=== PATIENT | male | born 1970 | race Caucasian/White ===

== ENCOUNTER 2017-05-23 08:40 | Emergency (ER) | payer MEDICAID ==
[~2017-05-23] VITALS: Ht 170.2 cm; Wt 75.0 kg
[2017-05-23 08:46] VITALS: BP 102/70
== END 2017-05-23 09:07 | disposition left against medical advice (07) ==
LOC: ER 08:50
DX: R07.89 Other chest pain (principal); F10.129 Alcohol abuse with intoxication, unspecified; I10 Essential (primary) hypertension; I25.2 Old myocardial infarction; F17.200 Nicotine dependence, unspecified, uncomplicated
CPT/HCPCS: 99283

== ENCOUNTER 2019-07-15 19:44 | Emergency (ER) | payer MEDICAID ==
[~2019-07-15] VITALS: Ht 170.2 cm; Wt 68.0 kg
[2019-07-15] MEDS ORDERED: SODIUM CHLORIDE 0.9% 1,000 ML IV ONE (20:14)
[2019-07-15] MEDS ORDERED: LEVETIRACETAM 1000MG/100ML 100 ML IV ONE (20:15)
[2019-07-15 20:51] LABS: CHLORIDE 111 mEq/L (98-107)
[2019-07-15 20:55] LABS: ETHANOL BLOOD 238 mg/dL
[2019-07-15 20:57] LABS: BASOPHILS % 1.5 % (0.0-2.0); EOSINOPHILS % 5.6 % (0.0-5.0); HEMATOCRIT. 39.7 % (42.0-52.0); HEMOGLOBIN. 13.4 g/dL (14.0-18.0); LYMPHOCYTES % 36.4 % (20.0-50.0); MEAN CORPUSCULAR HEMOGLOBIN 32.5 pg (28.0-32.0); MEAN CORPUSCULAR VOLUME 96.6 fL (80.0-94.0); MEAN PLATELET VOLUME 8.1 fl (7.4-10.4); MONOCYTES % 8.5 % (2.0-8.0); PLATELET 113 x1000/uL (130-400); RED BLOOD CELL COUNT 4.11 mill/uL (4.7-6.1)
[2019-07-15 21:11] LABS: CLARITY URINE CLEAR (CLEAR); COLOR URINE YELLOW (YELLOW); KETONES URINE NEGATIVE (NEGATIVE); LEUKOCYTE ESTERASE URINE NEGATIVE (NEGATIVE); NITRITE URINE NEGATIVE (NEGATIVE); OCCULT BLOOD URINE NEGATIVE (NEGATIVE); PH URINE 5.5 (4.5-8.0); PROTEIN URINE NEGATIVE (NEGATIVE); SPECIFIC GRAVITY URINE 1.005 (1.005-1.030); UROBILINOGEN URINE 0.2 E.U./dL (0.2-1.0)
[2019-07-15 21:21] LABS: *AMPHETAMINES SCREEN URINE NEGATIVE (NEGATIVE); *BARBITURATES SCREEN URINE NEGATIVE (NEGATIVE)
[2019-07-15 21:22] LABS: *BENZODIAZEPINES SCREEN URINE NEGATIVE (NEGATIVE); *COCAINE SCREEN URINE NEGATIVE (NEGATIVE); CANNABINOID URINE SCREEN NEGATIVE (NEGATIVE); METHADONE URINE SCREEN NEGATIVE (NEGATIVE); OPIATES URINE SCREEN NEGATIVE (NEGATIVE); PHENCYCLIDINE URINE SCREEN NEGATIVE (NEGATIVE)
[2019-07-15 22:40] VITALS: BP 159/96
== END 2019-07-15 22:44 | disposition home or self-care (01) ==
LOC: ER 19:44
DX: R56.9 Unspecified convulsions (principal); F10.229 Alcohol dependence with intoxication, unspecified; Y90.8 Blood alcohol level of 240 mg/100 ml or more; I10 Essential (primary) hypertension; Z86.73 Personal history of transient ischemic attack (TIA), and cerebral infarction without residual deficits; Z98.890 Other specified postprocedural states
CPT/HCPCS: 36415; 80053; 80305; 80320; 81003; 85025; 96365; 99283; J1953; J7030; Z7610; G0480

== ENCOUNTER 2019-08-23 06:11 | Inpatient (IN) | payer MEDICAID ==
[~2019-08-23] VITALS: Ht 167.6 cm; Wt 64.1 kg
[2019-08-23] MEDS ORDERED: MIDAZOLAM HCL 2 MG/2 ML VIAL ONE (06:18)
[2019-08-23] MEDS ORDERED: MIDAZOLAM HCL 2 MG/2 ML VIAL IM ONE (06:30)
[2019-08-23] MEDS ORDERED: LEVETIRACETAM 1000MG/100ML 100 ML IV ONE (06:30)
[2019-08-23] MEDS ORDERED: SODIUM CHLORIDE 0.9% 1,000 ML IV ONE (06:38)
[2019-08-23 06:51] LABS: CHLORIDE 103 mEq/L (98-107)
[2019-08-23 06:54] LABS: BASOPHILS % 0.8 % (0.0-2.0); EOSINOPHILS % 1.9 % (0.0-5.0); HEMATOCRIT. 45.9 % (42.0-52.0); HEMOGLOBIN. 14.7 g/dL (14.0-18.0); LYMPHOCYTES % 44.2 % (20.0-50.0); MEAN CORPUSCULAR HEMOGLOBIN 32.2 pg (28.0-32.0); MEAN CORPUSCULAR VOLUME 100.4 fL (80.0-94.0); MONOCYTES % 6.6 % (2.0-8.0); NEUTROPHILS % 46.5 % (40.0-76.0); PLATELET 193 x1000/uL (130-400); RED BLOOD CELL COUNT 4.57 mill/uL (4.7-6.1)
[2019-08-23 06:55] LABS: ETHANOL BLOOD 14 mg/dL
[2019-08-23 07:13] LABS: CLARITY URINE CLEAR (CLEAR); COLOR URINE YELLOW (YELLOW); KETONES URINE NEGATIVE (NEGATIVE); LEUKOCYTE ESTERASE URINE NEGATIVE (NEGATIVE); NITRITE URINE NEGATIVE (NEGATIVE); OCCULT BLOOD URINE 1+ (NEGATIVE); PH URINE 6.5 (4.5-8.0); PROTEIN URINE 2+ (NEGATIVE); SPECIFIC GRAVITY URINE 1.014 (1.005-1.030); UROBILINOGEN URINE 0.2 E.U./dL (0.2-1.0)
[2019-08-23 07:57] LABS: *AMPHETAMINES SCREEN URINE NEGATIVE (NEGATIVE); *BARBITURATES SCREEN URINE NEGATIVE (NEGATIVE); *BENZODIAZEPINES SCREEN URINE NEGATIVE (NEGATIVE); *COCAINE SCREEN URINE NEGATIVE (NEGATIVE); CANNABINOID URINE SCREEN NEGATIVE (NEGATIVE); OPIATES URINE SCREEN NEGATIVE (NEGATIVE); PHENCYCLIDINE URINE SCREEN NEGATIVE (NEGATIVE)
[2019-08-23 07:58] LABS: METHADONE URINE SCREEN NEGATIVE (NEGATIVE)
[2019-08-23 15:00] VITALS: BP_SYST 136; BP_SYST 138; BP_DIAS 98
[2019-08-23] MEDS ORDERED: LEVE1000 MT (17:44)
[2019-08-23] MEDS ORDERED: TRAZ-251 MT (17:44)
[2019-08-23] MEDS ORDERED: GABA-529 MT (17:44)
[2019-08-23] MEDS: LEVETIRACETAM 500MG PREMIX 100 ML IV SCH (18:14)
[2019-08-23] MEDS: ACETAMINOPHEN 325MG TABLET PO PRN (18:25)
[2019-08-23 20:19] VITALS: BP 149/90
[2019-08-23] MEDS: LORAZEPAM 2MG/ML CPJ IV PRN (21:18)
[2019-08-24] VITALS: BP 137/89
[2019-08-24] MEDS ORDERED: ACETAMINOPHEN 325MG TABLET PO PRN (00:45)
[2019-08-24] MEDS ORDERED: DIPHENHYDRAMINE 50MG/ML VIAL IV PRN (00:45)
[2019-08-24] MEDS ORDERED: ONDANSETRON HCL 4MG/2ML INJ IV PRN (00:45)
[2019-08-24] MEDS ORDERED: MAGNESIUM/ALUMINUM HYDROXIDE/SIMETHICONE 30ML UDC PO PRN (00:45)
[2019-08-24] MEDS ORDERED: MVI, ADULT NO.1 10 ML, FOLIC ACID 1 MG, THIAMINE HCL 100 MG in SODIUM CHLORIDE 0.9% 1,0... IV SCH ×4 (03:00)
[2019-08-24 04:00] VITALS: BP 154/98
[2019-08-24] MEDS: SODIUM CHLORIDE 0.9% INJ 3ML FLUSH IVF SCH ×3 (06:26→21:54)
[2019-08-24] MEDS: LORAZEPAM 2MG/ML CPJ IV PRN ×2 (06:44→16:15)
[2019-08-24 07:26] LABS: BASOPHILS % 0.6 % (0.0-2.0); EOSINOPHILS % 1.4 % (0.0-5.0); HEMATOCRIT. 40.3 % (42.0-52.0); HEMOGLOBIN. 13.8 g/dL (14.0-18.0); LYMPHOCYTES % 24.7 % (20.0-50.0); MEAN CORPUSCULAR HEMOGLOBIN 31.6 pg (28.0-32.0); MEAN CORPUSCULAR VOLUME 92.5 fL (80.0-94.0); MEAN PLATELET VOLUME 9.6 fl (7.4-10.4); MONOCYTES % 8.8 % (2.0-8.0); NEUTROPHILS % 64.5 % (40.0-76.0); PLATELET 150 x1000/uL (130-400); RED BLOOD CELL COUNT 4.36 mill/uL (4.7-6.1); RED CELL DISTRIBUTION WIDTH 12.9 % (11.6-14.6)
[2019-08-24 08:00] VITALS: BP 119/72
[2019-08-24 08:07] LABS: CHLORIDE 99 mEq/L (98-107)
[2019-08-24 08:20] LABS: PHOSPHORUS 2.1 mg/dL (2.5-4.9)
[2019-08-24] MEDS: LEVETIRACETAM 500MG PREMIX 100 ML IV SCH ×2 (09:55→21:53)
[2019-08-24] MEDS: FAMOTIDINE 20MG TABLET PO SCH ×2 (09:57→21:53)
[2019-08-24 12:00] VITALS: BP 135/88
[2019-08-24] MEDS: ACETAMINOPHEN 325MG TABLET PO PRN ×2 (13:42→21:53)
[2019-08-24] MEDS: CHLORDIAZEPOXIDE 25MG CAPSULE PO SCH ×2 (14:01→21:53)
[2019-08-24 16:00] VITALS: BP 128/76
[2019-08-24 20:06] VITALS: BP 139/96
[2019-08-24] MEDS ORDERED: LORAZEPAM 2MG/ML CPJ IV PRN (20:15)
[2019-08-25] VITALS: BP 138/90
[2019-08-25 04:00] VITALS: BP 140/74
[2019-08-25] MEDS: CHLORDIAZEPOXIDE 25MG CAPSULE PO SCH (06:17)
[2019-08-25] MEDS: SODIUM CHLORIDE 0.9% INJ 3ML FLUSH IVF SCH (06:18)
[2019-08-25 07:40] LABS: BASOPHILS % 1.4 % (0.0-2.0); EOSINOPHILS % 3.6 % (0.0-5.0); HEMATOCRIT. 40.3 % (42.0-52.0); HEMOGLOBIN. 13.9 g/dL (14.0-18.0); LYMPHOCYTES % 24.9 % (20.0-50.0); MEAN CORPUSCULAR HEMOGLOBIN 32.6 pg (28.0-32.0); MONOCYTES % 10.4 % (2.0-8.0); NEUTROPHILS % 59.7 % (40.0-76.0); PLATELET 145 x1000/uL (130-400); RED BLOOD CELL COUNT 4.28 mill/uL (4.7-6.1); RED CELL DISTRIBUTION WIDTH 12.8 % (11.6-14.6)
[2019-08-25 07:45] LABS: CHLORIDE 106 mEq/L (98-107)
[2019-08-25 07:51] LABS: PHOSPHORUS 3.2 mg/dL (2.5-4.9)
[2019-08-25] MEDS: FAMOTIDINE 20MG TABLET PO SCH (08:23)
[2019-08-25] MEDS: LEVETIRACETAM 500MG PREMIX 100 ML IV SCH (08:24)
[2019-08-25] MEDS ORDERED: THIAMINE HCL 100MG TABLET PO SCH (09:00)
[2019-08-25 11:48] VITALS: BP 132/96
[2019-08-25 12:00] VITALS: BP 132/96
[2019-08-25] MEDS ORDERED: CHLORDIAZEPOXIDE 25MG CAPSULE PO SCH (14:00)
[2019-08-25] MEDS ORDERED: LEVETIRACETAM 500MG TABLET PO SCH (21:00)
== END 2019-08-25 13:25 | DRG 52 ==
LOC: ER 06:11 → 6WST 08:10 → EDBEDREQ 08:13 → EDBEDREQTM 08:13 → CANRESERV 13:55 → ENRESERV 13:55
PROVIDERS: ADMIT Internal Medicine; ATTEND Internal Medicine
DX: G92 Toxic encephalopathy (principal); F10.239 Alcohol dependence with withdrawal, unspecified; R74.0 Nonspecific elevation of levels of transaminase and lactic acid dehydrogenase [LDH]; I10 Essential (primary) hypertension; G40.909 Epilepsy, unspecified, not intractable, without status epilepticus; Z86.73 Personal history of transient ischemic attack (TIA), and cerebral infarction without residual deficits; Z79.899 Other long term (current) drug therapy
CPT/HCPCS: 36415; 71045; 80048; 80053; 80305; 80320; 81003; 82962; 83735; 84100; 85025; 93005; 97162; 99285; C1893; J1953; J2060; J2250; J3411; J3490; J7030; J7040; G0480

== ENCOUNTER 2020-03-28 18:43 | Inpatient (IN) | payer MEDICAID, OTHER ==
[~2020-03-28] VITALS: Ht 167.6 cm; Wt 82.0 kg
[~2020-03-28 18:43] MED LIST: GABA-529 MT; LEVE1000 MT; TRAZ-251 MT
[2020-03-28] MEDS ORDERED: SODIUM CHLORIDE 0.9% 1,000 ML IV ONE (19:14)
[2020-03-28] MEDS ORDERED: LORAZEPAM 2MG/ML CPJ IV STA (19:14)
[2020-03-28] MEDS ORDERED: LORAZEPAM 2MG/ML CPJ ONE (19:23)
[2020-03-28 19:32] LABS: BASOPHILS % 1.8 % (0.0-2.0); EOSINOPHILS % 1.5 % (0.0-5.0); HEMATOCRIT. 30.6 % (42.0-52.0); HEMOGLOBIN. 10.3 g/dL (14.0-18.0); LYMPHOCYTES % 30.2 % (20.0-50.0); MEAN CORPUSCULAR HEMOGLOBIN 32.7 pg (28.0-32.0); MEAN CORPUSCULAR VOLUME 97.3 fL (80.0-94.0); MEAN PLATELET VOLUME 6.9 fl (7.4-10.4); MONOCYTES % 12.5 % (2.0-8.0); PLATELET 182 x1000/uL (130-400); RED BLOOD CELL COUNT 3.15 mill/uL (4.7-6.1); RED CELL DISTRIBUTION WIDTH 12.9 % (11.6-14.6)
[2020-03-28 19:36] LABS: CHLORIDE 101 mEq/L (98-107)
[2020-03-28 20:01] LABS: ETHANOL BLOOD 542 mg/dL
[2020-03-28 23:12] LABS: *AMPHETAMINES SCREEN URINE NEGATIVE (NEGATIVE); *BARBITURATES SCREEN URINE NEGATIVE (NEGATIVE); *BENZODIAZEPINES SCREEN URINE NEGATIVE (NEGATIVE); *COCAINE SCREEN URINE NEGATIVE (NEGATIVE)
[2020-03-28 23:13] LABS: CANNABINOID URINE SCREEN NEGATIVE (NEGATIVE); METHADONE URINE SCREEN NEGATIVE (NEGATIVE); OPIATES URINE SCREEN NEGATIVE (NEGATIVE); PHENCYCLIDINE URINE SCREEN NEGATIVE (NEGATIVE)
[2020-03-29] MEDS ORDERED: ONDANSETRON HCL 4MG/2ML INJ IV PRN (10:15)
[2020-03-29] MEDS ORDERED: LORAZEPAM 2MG/ML CPJ IV PRN (10:15)
[2020-03-29 10:52] VITALS: BP 142/78
[2020-03-29] MEDS ORDERED: ENOXAPARIN 40MG/0.4ML SYR SUBCUT SCH (11:00)
[2020-03-29] MEDS ORDERED: FOLIC ACID 1 MG, THIAMINE HCL 100 MG, MVI, ADULT NO.1 10 ML in DEXTROSE 5% WATER 1,000 ML IV ONE ×4 (12:00)
[2020-03-29] MEDS ORDERED: CHLORDIAZEPOXIDE 25MG CAPSULE PO SCH (14:00)
== END 2020-03-29 12:28 | disposition left against medical advice (07) | DRG 770 ==
LOC: ER 18:43 → MICUSO 21:38 → 6WST 03-29 07:25
PROVIDERS: ADMIT Internal Medicine; ATTEND Internal Medicine
DX: F10.229 Alcohol dependence with intoxication, unspecified (principal); E87.1 Hypo-osmolality and hyponatremia; I10 Essential (primary) hypertension; Y90.8 Blood alcohol level of 240 mg/100 ml or more; Z86.73 Personal history of transient ischemic attack (TIA), and cerebral infarction without residual deficits; Z79.899 Other long term (current) drug therapy; G40.909 Epilepsy, unspecified, not intractable, without status epilepticus; D64.9 Anemia, unspecified
CPT/HCPCS: 36415; 70486; 71045; 80053; 80305; 80320; 85025; 93005; 99285; J2060; J3411; J3490; J7030; J7070; G0480

== ENCOUNTER 2020-04-11 17:36 | Emergency (ER) | payer MEDICAID, OTHER ==
[~2020-04-11] VITALS: Ht 177.8 cm; Wt 100.0 kg
[2020-04-11 17:44] VITALS: BP 145/72
== END 2020-04-11 19:25 | disposition left against medical advice (07) ==
LOC: ER 17:36
DX: F10.10 Alcohol abuse, uncomplicated (principal); Y90.9 Presence of alcohol in blood, level not specified; I10 Essential (primary) hypertension; R56.9 Unspecified convulsions; Z86.73 Personal history of transient ischemic attack (TIA), and cerebral infarction without residual deficits
CPT/HCPCS: 99283

== ENCOUNTER 2021-04-04 20:07 | Emergency (ER) | payer MEDICAID ==
[~2021-04-04] VITALS: Ht 170.2 cm; Wt 73.0 kg
[2021-04-04] MEDS ORDERED: CHLORDIAZEPOXIDE 25MG CAPSULE PO ONE (22:45)
[2021-04-04] MEDS ORDERED: CHLORDIAZEPOXIDE 5 MG CAPSULE PO NR (23:00)
[2021-04-04 23:05] LABS: BASOPHILS % 3.5 % (0.0-2.0); EOSINOPHILS % 4.2 % (0.0-5.0); HEMATOCRIT. 40.2 % (42.0-52.0); HEMOGLOBIN. 13.4 g/dL (14.0-18.0); LYMPHOCYTES % 39.4 % (20.0-50.0); MEAN CORPUSCULAR HEMOGLOBIN 31.3 pg (28.0-32.0); MEAN CORPUSCULAR VOLUME 94.3 fL (80.0-94.0); MONOCYTES % 7.9 % (2.0-8.0); PLATELET 166 x1000/uL (130-400); RED BLOOD CELL COUNT 4.27 mill/uL (4.7-6.1); RED CELL DISTRIBUTION WIDTH 14.1 % (11.6-14.6)
[2021-04-04 23:11] LABS: CHLORIDE 113 mEq/L (98-107)
[2021-04-04 23:24] LABS: ETHANOL BLOOD 414 mg/dL
[2021-04-05 02:16] VITALS: BP 118/70
== END 2021-04-05 05:55 | disposition home or self-care (01) ==
LOC: ER 20:07
DX: R56.9 Unspecified convulsions (principal); F10.129 Alcohol abuse with intoxication, unspecified; Y90.8 Blood alcohol level of 240 mg/100 ml or more
CPT/HCPCS: 36415; 71045; 80053; 80320; 84484; 85025; 93005; 99285; J7040; G0480

== ENCOUNTER 2021-04-13 16:06 | Emergency (ER) | payer MEDICAID ==
[~2021-04-13] VITALS: Ht 167.6 cm; Wt 73.0 kg
[2021-04-13 16:15] VITALS: BP 120/79
[2021-04-13] MEDS ORDERED: LEVETIRACETAM 500MG PREMIX 100 ML IV ONE (16:45)
== END 2021-04-13 17:27 | disposition left against medical advice (07) ==
LOC: ER 16:06
DX: G43.119 Migraine with aura, intractable, without status migrainosus (principal); F10.129 Alcohol abuse with intoxication, unspecified; Y90.9 Presence of alcohol in blood, level not specified; G40.909 Epilepsy, unspecified, not intractable, without status epilepticus; F17.210 Nicotine dependence, cigarettes, uncomplicated; I10 Essential (primary) hypertension; Z86.73 Personal history of transient ischemic attack (TIA), and cerebral infarction without residual deficits
CPT/HCPCS: 99283